=== PATIENT | female | born 1990 | race Caucasian/White ===

== ENCOUNTER 2017-05-28 13:29 | Emergency (ER) | payer MEDICAID ==
[2017-05-28 13:35] VITALS: BP 111/72; PULSE 89; RESP 18; TEMP 97.9; O2SAT 98
--- NOTE | 2017-05-28 14:35 | EDPHY ---
H & P Time Seen by Provider: 05/28/17 14:25 HPI/ROS: CHIEF COMPLAINT: Left shoulder pain HISTORY OF PRESENT ILLNESS: Patient is a 27-year-old female who presents emergency department after "dislocating" her left shoulder. Patient states she was running and slipped on ice. She put her arm back to the catch herself. She felt her left shoulder "pop out". She states she put it back in place. She has no numbness or tingling. She has mild pain in the left shoulder. No previous dislocation. No head injury. No neck or back pain. REVIEW OF SYSTEMS: My complete review of systems is negative except as mentioned in the HPI. Past Medical/Surgical History: Negative Smoking Status: Never smoked Physical Exam: Vitals noted General Appearance: Alert and no distress. Head: Pupils equal. Normal. Neck: No spinal tenderness palpation Respiratory: No respiratory distress. Cardiac: regular rate and rhythm. Back: No spinal tenderness palpation. Extremities: Patient's left shoulder appears normal. There is no swelling or bruising. No bony tenderness to palpation. No deltoid tenderness. She is neurovascular intact distally.. Skin: No rashes or lesions. Neuro: Alert. Normal mood and affect. Constitutional: Initial Vital Signs Temperature (C) 36.6 C 05/28/17 13:33 Heart Rate 89 05/28/17 13:33 Respiratory Rate 18 05/28/17 13:33 Blood Pressure 111/72 05/28/17 13:33 O2 Sat (%) 98 05/28/17 13:33 O2 Delivery Mode Room Air Allergies/Adverse Reactions: No Known Allergies Allergy (Unverified 09/27/09 18:38) Home Medications: Medication Instructions Recorded Azithromycin [Zpack 250 mg] 250 mg PO DAILY #6 tab 09/27/09 Benzonatate [Tessalon Pearles] 100 mg PO TID PRN #30 cap 09/27/09 NO HOME MEDS 09/27/09 Medical Decision Making ED Course/Re-evaluation: In the emergency department I discussed possible etiologies with the patient. I answered all her questions. An x-ray of her left shoulder was ordered. Patient has an IUD in place. Left shoulder x-ray: Please refer the dictated report. No acute disease noted. No fracture or dislocation. I discussed the results with the patient. I answered all her questions. She was given warnings. She is aware she needs close follow-up with Orthopedics. She was placed in a shoulder sling by the technology support analyst. She was neurovascular intact distally post sling placement. Differential Diagnosis: My differential includes but is not limited to fracture, dislocation, sprain, strain, contusion Departure - Departure Disposition: Home, Routine, Self-Care Clinical Impression: Shoulder injury Qualifiers: Encounter type: initial encounter Laterality: left Qualified Code(s): S49.92XA - Unspecified injury of left shoulder and upper arm, initial encounter Condition: Good Instructions: Shoulder Dislocation (ED), Shoulder Pain (ED) Additional Instructions: Use your sling for comfort. You need close follow-up with Orthopedics. Referrals: Arti Pace MD [Primary Care Provider] - As per Instructions Eyad Azar MD [Medical Doctor] - 5-7 days, call for appt.
== END 2017-05-28 15:27 | disposition home or self-care (01) ==
DX: S49.92XA Unspecified injury of left shoulder and upper arm, initial encounter (principal); W18.40XA Slipping, tripping and stumbling without falling, unspecified, initial encounter; Y99.8 Other external cause status; Y93.02 Activity, running
CPT/HCPCS: A4565

== ENCOUNTER → 2017-06-12 | Outpatient (CLI) | payer MEDICAID | LOC: FIMAGING 07:16 | PROVIDERS: ATTEND Orthopaedic Surgery | DX: M25.412 Effusion, left shoulder (principal); S43.012S Anterior subluxation of left humerus, sequela ==